=== PATIENT | male | born 1980 | race Caucasian/White ===

== ENCOUNTER 2018-06-25 18:08 | Emergency (ER) | payer BC ==
[2018-06-25 18:33] VITALS: BP 144/82; PULSE 86; RESP 16; TEMP 98.1; O2SAT 99
== END 2018-06-25 19:50 | disposition home or self-care (01) ==
LOC: ED 18:08
DX: S52.512A Displaced fracture of left radial styloid process, initial encounter for closed fracture (principal)
CPT/HCPCS: 73090; 73110; 99283